=== PATIENT | female | born 1970 | race Caucasian/White ===

== ENCOUNTER 2024-01-04 11:12 | Day surgery (SDC) | payer OTHER ==
[~2024-01-04] VITALS: Ht 160 cm; Wt 83.6 kg
[~2024-01-04 11:12] MED LIST: LEVO25TA9 PO; LISI40TA9 PO; MUPIROCIN CALCIUM 2% 22 GM OINTMENT ONE; QUET25TA PO; RINGERS SOLUTION,LACTATED 1,000 ML IV ONE; SODIUM CL IRRIG SOLN BAG 3,000 ML IRRIG ONE
[2024-01-04] MEDS ORDERED: SUGAMMADEX SODIUM 200 MG/2 ML VIAL IVP ONE (11:13)
[2024-01-04] MEDS ORDERED: HydrALAZINE HCL 20 MG/ML VIAL IVP ONE (11:13)
[2024-01-04] MEDS ORDERED: MIDAZOLAM HCL 2 MG/2 ML VIAL IVP ONE (11:13)
[2024-01-04] MEDS ORDERED: ACETAMINOPHEN/ISO-OSM 1000 MG/100 ML BOTTLE IV ONE (11:13)
[2024-01-04] MEDS ORDERED: CeFAZolin SODIUM 1 GM VIAL IVP ONE (11:13)
[2024-01-04] MEDS ORDERED: ONDANSETRON HCL 4 MG/2 ML VIAL IVP ONE (11:13)
[2024-01-04] MEDS ORDERED: FentaNYL CITRATE PF 100 MCG/2 ML VIAL IVP ONE (11:13)
[2024-01-04] MEDS ORDERED: DEXAMETHASONE SOD PHOS 4 MG/ML VIAL IVP ONE (11:13)
[2024-01-04] MEDS ORDERED: PROPOFOL 1% 20 ML VIAL IVP ONE (11:13)
[2024-01-04] MEDS ORDERED: LIDOCAINE/PF 2% 5 ML SYRINGE IVP ONE (11:13)
[2024-01-04] MEDS ORDERED: ROCURONIUM BROMIDE 10 MG/ML 5 ML VIAL IVP ONE (11:13)
[2024-01-04] MEDS ORDERED: PROPOFOL 1% ISO-OSM 1000 MG/100 ML BOTTLE IV ONE (11:13)
[2024-01-04 11:55] LABS: BASOPHILS % (AUTO) 0.6 % (0.0-2.0); EOSINOPHILS % (AUTO) 4.2 % (1.0-6.0); HEMATOCRIT 35.8 % (36-46); LYMPHOCYTES # (AUTO) 2.1 K/uL (1.0-4.8); LYMPHOCYTES % (AUTO) 28.5 % (22.0-44.0); MEAN CORPUSCULAR HEMOGLOBIN 29.4 pg (26.0-34.0); MEAN CORPUSCULAR HGB CONC 33.4 G/dL (31.0-37.0); MEAN CORPUSCULAR VOLUME 88 fL (80-100); MONOCYTES # (AUTO) 0.5 K/uL (0.1-1.0); MONOCYTES % (AUTO) 6.2 % (2.0-9.0); NEUTROPHILS # (AUTO) 4.5 K/uL (1.8-7.7); NEUTROPHILS % (AUTO) 60.5 % (40.0-70.0); PLATELET COUNT (AUTO) 283 K/uL (150-450); RED BLOOD CELL COUNT(AUTO) 4.07 MIL/uL (4.00-5.20); RED CELL DISTRIBUTION WIDTH 14.5 % (11.5-14.5); WHITE BLOOD COUNT (AUTO) 7.4 K/uL (4.5-11.0)
[2024-01-04] MEDS: ETHYL ALCOHOL 62% ANTISEPTIC NASAL SANITIZER 0.6 ML AMPUL NASAL ONE (12:02)
[2024-01-04] MEDS: RINGERS SOLUTION,LACTATED 1,000 ML IV ONE (12:05)
[2024-01-04 12:06] LABS: PROTHROMBIN TIME 10.7 SEC (9.4-11.6)
[2024-01-04 12:10] LABS: ANION GAP 12 mmol/L (8-16); CALCIUM, TOTAL 9.5 mg/dL (8.8-10.5); CARBON DIOXIDE 24 mmol/L (22-29); CHLORIDE 105 mmol/L (98-107); CREATININE 0.68 mg/dL (0.60-1.30); GLOMERULAR FILTR. RATE CALC > 60 mL/min (>60); GLUCOSE,RANDOM 103 mg/dL (70-110); POTASSIUM 3.8 mmol/L (3.5-5.1); SODIUM SERUM 141 mmol/L (136-145); UREA NITROGEN, BLOOD 19 mg/dL (7-18)
[2024-01-04 12:14] LABS: ALANINE AMINOTRANSFERASE 53 U/L (12-78); ALBUMIN 4.2 g/dL (3.4-5.0); ALKALINE PHOSPHATASE 58 U/L (46-116); ASPARTATE AMINOTRANSFERASE 20 U/L (15-37); BILIRUBIN,TOTAL 0.3 mg/dL (0.1-1.0); TOTAL PROTEIN, SERUM 7.5 g/dL (6.4-8.2)
[2024-01-04] MEDS ORDERED: IOHEXOL 240 MG/ML 20 ML VIAL ONE ×2 (12:46)
[2024-01-04] MEDS: MICROFIBRILLAR COLLAGEN 1 GM PACKAGE TP ONE (14:20)
[2024-01-04] MEDS: VANCOMYCIN HCL 1 GM/VIAL ONE (14:20)
[2024-01-04] MEDS: BUPIVACAINE LIPOSOME/PF 1.3%-13.3MG/ML SUSP 20 ML VIAL INJ ONE (14:25)
[2024-01-04] MEDS: BUPIVACAINE HCL/PF 0.25% 30 ML VIAL ONE (14:25)
[2024-01-04] MEDS ORDERED: CeFAZolin 2 GM/DEXTROSE 50 ML IV ONE (14:36)
[2024-01-04] MEDS: CeFAZolin 2 GM/DEXTROSE 50 ML IV ONE (14:54)
[2024-01-04] MEDS ORDERED: FentaNYL CITRATE PF 100 MCG/2 ML VIAL ONE (14:56)
[2024-01-04] MEDS: FentaNYL CITRATE PF 100 MCG/2 ML VIAL IVP PRN (14:57)
[2024-01-04] MEDS ORDERED: OXYGEN THERAPY IH SCH (20:00)
== END 2024-01-04 16:00 | disposition home or self-care (01) ==
LOC: SURGERY 11:12
PROVIDERS: ATTEND Orthopaedic Surgery
DX: T84.84XA Pain due to internal orthopedic prosthetic devices, implants and grafts, initial encounter (principal); M77.52 Other enthesopathy of left foot and ankle; M19.072 Primary osteoarthritis, left ankle and foot; I10 Essential (primary) hypertension; Z79.01 Long term (current) use of anticoagulants; E03.9 Hypothyroidism, unspecified; Z79.899 Other long term (current) drug therapy; L90.5 Scar conditions and fibrosis of skin; Z88.8 Allergy status to other drugs, medicaments and biological substances; Z88.6 Allergy status to analgesic agent; Y83.8 Other surgical procedures as the cause of abnormal reaction of the patient, or of later complication, without mention of misadventure at the time of the procedure
CPT/HCPCS: 27632; 20680; 27648; 73615; 13121; 80053; 87205; 87081; 85025; 85610; 85730; 87101; 36415; 87070; J3490 ×3; J2704 ×2; J0690 ×2; J1100; J3010; J0360; J2250; J2405; J3370; Q9967; J7120; J0131; C9290; Q9966; Z7610